=== PATIENT | female | born 1945 | race Caucasian/White ===

== ENCOUNTER 2020-12-16 01:37 | Emergency (ER) | payer OTHER, SELFPAY ==
[2020-12-16] VITALS (7 sets, daily range): BP systolic 106–122; BP diastolic 50–84; PULSE 70–107; RESP 16–18; TEMP 36.7; O2SAT 97–100; BMI 21.7
--- NOTE | ~2020-12-16 | XR_ITS ---
EXAMINATION: XR ANKLE, LEFT CLINICAL INFORMATION: Fall. Deformity. COMPARISON: None TECHNIQUE: AP, lateral, and mortise views of the left ankle. FINDINGS: There is an obliquely oriented distal fibular fracture extending to the ankle mortise. Slight lateral displacement of the distal fragment. Transverse fracture at the medial malleolus. No significant displacement. Prominent soft tissue swelling. Note is made of arthroplasty at the metatarsophalangeal joint, likely the first digit. XR/XR ankle LT min 3V IMPRESSION: Bimalleolar ankle fracture with prominent soft tissue swelling.
--- NOTE | ~2020-12-16 | CT_ITS ---
EXAMINATION: CT FEMUR WITHOUT CONTRAST, RIGHT CLINICAL INFORMATION: Fall with enlarging hematoma. COMPARISON: None TECHNIQUE: Multidetector volumetric imaging of the right femur performed without IV contrast. Coronal and sagittal reformatted images are obtained and reviewed. This CT examination was performed using dose optimization techniques as appropriate, variously including the following: *Automated exposure control *Adjustment of mA and/or kV according to patient size (this includes techniques or standardized protocols for targeted exams where dose is matched to indication/reason for exam; i.e. extremities or head) *Use of iterative reconstruction technique DLP: 378 mGy-cm FINDINGS: There is a prominent hematoma in the lateral soft tissues overlying the right proximal femur. The hematoma has a central area of well-defined appearance measuring 4.7 x 3.5 x 8.4 cm. There is significant surrounding soft tissue stranding/blood. This is positioned in the superficial soft tissues. There is no deep muscular hematoma. No acute osseous abnormality. No fracture. The hip is well aligned. The visualized right pelvis is intact. The femur is intact. Appropriate alignment of the knee. No joint effusion. CT/CT femur RT wo con IMPRESSION: Hematoma in the subcutaneous tissues overlying the lateral aspect of the proximal right femur.
--- NOTE | ~2020-12-16 | CT_ITS ---
EXAMINATION: NONCONTRAST HEAD CT NONCONTRAST CERVICAL SPINE CT INDICATION INFORMATION: Fall COMPARISON: None TECHNIQUE: Separate noncontrast CT examinations of the head and cervical spine were performed. Coronal and sagittal images were created for each examination at the technologist workstation. This CT examination was performed using dose optimization techniques as appropriate, variously including the following: *Automated exposure control *Adjustment of mA and/or kV according to patient size (this includes techniques or standardized protocols for targeted exams where dose is matched to indication/reason for exam; i.e. extremities or head) *Use of iterative reconstruction technique DLP: 924 mGy-cm FINDINGS: Head: There is no evidence of acute intracranial hemorrhage or territorial infarction. No abnormal mass effect or midline shift is seen. Winslow to white matter differentiation is well preserved. No extra-axial fluid collections are identified. No hydrocephalus. Proportional prominence of the ventricles and sulcal spaces is consistent with mild volume loss. Patchy periventricular and deep white matter hypoattenuation is consistent with mild small vessel ischemic changes. No acute osseous or soft tissue abnormality. The mastoid air cells and visualized portions of the paranasal sinuses are well aerated. Cervical spine: There is anatomic alignment of the vertebral bodies and posterior elements. The atlantoaxial and atlantooccipital articulations are intact. Vertebral body heights are maintained. There is multilevel intervertebral disc space narrowing with endplate osteophyte formation and facet arthropathy. No evidence of acute fracture. No prevertebral soft tissue swelling. Pleural thickening at the lung apices.. The thyroid gland is unremarkable. CT/CT cervical spine wo con IMPRESSION: 1. No acute intracranial finding. 2. No fracture or malalignment of the cervical spine. Moderate degenerative changes.
--- NOTE | 2020-12-16 01:51 | PC.NURSE ---
at bedside for primary eval.
--- NOTE | 2020-12-16 01:53 | ED.FALL ---
HPI - Fall General Chief Complaint: Fall Stated Complaint: fall fx ankle Time Seen by Provider: 12/16/20 01:43 Source: patient and EMS Mode of arrival: EMS Limitations: no limitations History of Present Illness HPI Narrative: Patient comes to the emergency room after a fall. Patient states she is visiting her family. Patient turned off the lights, misjudged a step and fell down the stairs. Patient denies loss of consciousness. Patient states she fell down a flight of stairs. Patient complaining of neck pain, right thigh pain and left ankle pain. Patient denies headache, no loss of consciousness, patient is not on blood thinners. At this time patient states that she is not hurting and does not want pain medication. Related Data Allergies Allergy/AdvReac Type Severity Reaction Status Date / Time No Known Allergies Allergy Verified 12/16/20 01:48 Review of Systems Review of Systems: Constitutional : No Weight loss, No Fever, No Chills, No Night Sweats, No Fatigue, No Malaise ENT/Mouth : No Hearing loss, No Ear Pain, No Nasal Congestion, No Sinus Pain, No Hoarseness, No sore throat, No Rhinorrhea, No Swallowing Difficulty Eyes: No Eye Pain, No Swelling, No Redness, No Foreign Body, No Discharge, No Vision Changes Cardiovascular : No Chest Pain, No SOB, No Dyspnea on Exertion, No Orthopnea, No Edema, No Palpitations Respiratory : No Cough, No Sputum, No Wheezing, No Smoke Exposure, No Dyspnea Gastrointestinal : No Nausea, No Vomiting, No Diarrhea, No Constipation, No abdominal Pain, No Hematochezia, No Melena Genitourinary : no irregular bleeding, No Dysuria, No Urinary Frequency, No Hematuria, No Urinary Incontinence, No Urgency, No Flank Pain, No Urinary Flow Changes, No Hesitancy Musculoskeletal : Neck pain, right thigh pain, left ankle pain Skin : Growing ecchymosis in the right thigh Neuro : No Weakness, No Numbness, No Paresthesias, No Loss of Consciousness, No Dizziness, No Headache Psych : No Anxiety/Panic, No Depression, No SI/HI/AH/VH, No Social Issues, Heme/Lymph: No Bruising, No Bleeding,No Lymphadenopathy Endocrine : No Polyuria, No Polydipsia, No Temperature Intolerance PMFSH Past Medical History Medical History Arthritis Hyperlipidemia Hypertension Social History Social History Patient Tobacco Use Status: Never used Tobacco Advance Directives: No Advance Directives Information Provided: No Physical Exam Vital Signs: Vital Signs: Last Vital Signs Temp 98.0 F 12/16/20 01:39 Pulse 87 12/16/20 07:01 Resp 16 12/16/20 07:01 BP 116/69 12/16/20 07:01 Pulse Ox 100 12/16/20 07:01 Body Mass Index 21.7 Appearance: Alert. Oriented X3. No acute distress. Eyes: Pupils equal, round and reactive to light. ENT: Pharynx normal. Neck: Normal inspection. Neck supple. No lymph nodes noted. No crepitus CVS: Normal heart rate and rhythm. Pulses normal. Normal S1 and S2 Respiratory: No respiratory distress. Breath sounds normal. No Wheezing. No rales Abdomen: Soft and nontender. No rigidity. No distention. good BS x4 Skin: Small laceration to the left ear. 10 cm x 5 cm ecchymosis in the posterior aspect of the right side. Extremities: No lower extremity edema. Deformity over the left ankle, swelling, no ecchymosis Neuro: Oriented X 3. No motor deficit. No sensory deficit. Moving all extermities. No slurred speech. Course Course Course Narrative: I discussed the patient with Dr. Gamboa. Recommendations: Follow-up outpatient on 12/20/20. Initially patient declines physical therapy and case management consult, but patient is unable to get up from the chair even using crutches. Patient's is trying to poke a flight to return to [place] as soon as possible. In the meantime, patient cannot return home, she has difficulty even walking with crutches. Case management and physical therapy consult pending. Sign-out given to Dr. West Procedures Laceration Laceration 1: Site: other (Left ear) Side (If applicable): left Size (cm): 1 Description: linear Depth: simple, single layer Local Anesthetic: lidocaine 2% Amount of anesthesia used (mL): 1 Skin layer closed with: nylon Size (cm): 6-0 Number of sutures: 3 MDM - Fall Lab Data Result diagrams: 12/16/20 07:19 12/16/20 07:19 Labs: Lab Results 12/16/20 Range/Units 07:19 WBC 12.6 H (4.8-10.8) X10*3/uL RBC 3.74 L (4.20-5.50) X10*6/uL Hgb 11.5 L (12.0-16.0) g/dl Hct 34.1 L (37-47) % MCV 91.2 (80-98) fL MCH 30.7 (27.0-33.0) pg MCHC 33.7 (31.0-35.0) g/dl RDW 12.8 (11.0-16.0) % Plt Count 170 (160-400) X10*3/uL MPV 10.7 (9.4-12.3) fL Absolute Nucleated RBC 0.000 (0.0-0.012) X10*3/uL Nucleated RBC % (auto) 0.0 (0.0-0.2) /100WBC Imaging Data Head and neck CT: Radiologist's impression: Head: There is no evidence of acute intracranial hemorrhage or territorial infarction. No abnormal mass effect or midline shift is seen. Winslow to white matter differentiation is well preserved. No extra-axial fluid collections are identified. No hydrocephalus. Proportional prominence of the ventricles and sulcal spaces is consistent with mild volume loss. Patchy periventricular and deep white matter hypoattenuation is consistent with mild small vessel ischemic changes. No acute osseous or soft tissue abnormality. The mastoid air cells and visualized portions of the paranasal sinuses are well aerated. Cervical spine: There is anatomic alignment of the vertebral bodies and posterior elements. The atlantoaxial and atlantooccipital articulations are intact. Vertebral body heights are maintained. There is multilevel intervertebral disc space narrowing with endplate osteophyte formation and facet arthropathy. No evidence of acute fracture. No prevertebral soft tissue swelling. Pleural thickening at the lung apices.. The thyroid gland is unremarkable. CT/CT cervical spine wo con IMPRESSION: 1. No acute intracranial finding. 2. No fracture or malalignment of the cervical spine. Moderate degenerative changes. Femur, thigh CT scan: Radiologist's impression: This CT examination was performed using dose optimization techniques as appropriate, variously including the following: *Automated exposure control *Adjustment of mA and/or kV according to patient size (this includes techniques or standardized protocols for targeted exams where dose is matched to indication/reason for exam; i.e. extremities or head) *Use of iterative reconstruction technique DLP: 378 mGy-cm FINDINGS: There is a prominent hematoma in the lateral soft tissues overlying the right proximal femur. The hematoma has a central area of well-defined appearance measuring 4.7 x 3.5 x 8.4 cm. There is significant surrounding soft tissue stranding/blood. This is positioned in the superficial soft tissues. There is no deep muscular hematoma. No acute osseous abnormality. No fracture. The hip is well aligned. The visualized right pelvis is intact. The femur is intact. Appropriate alignment of the knee. No joint effusion. CT/CT femur RT wo con IMPRESSION: Hematoma in the subcutaneous tissues overlying the lateral aspect of the proximal right femur. Ankle x-ray: Radiologist's impression: FINDINGS: There is an obliquely oriented distal fibular fracture extending to the ankle mortise. Slight lateral displacement of the distal fragment. Transverse fracture at the medial malleolus. No significant displacement. Prominent soft tissue swelling. Note is made of arthroplasty at the metatarsophalangeal joint, likely the first digit. XR/XR ankle LT min 3V IMPRESSION: Bimalleolar ankle fracture with prominent soft tissue swelling. Discharge Plan Discharge Clinical Impression: Malleolar fracture, Hematoma and contusion, Laceration Instructions: Ankle Fracture (ED), Laceration (ED), Contusion in Adults (ED)
--- NOTE | 2020-12-16 02:10 | PC.NURSE ---
Pt off to imaging on hospital bed.
--- NOTE | 2020-12-16 02:27 | PC.NURSE ---
Pt returns from imaging on hospital bed. Pt aware of plan to await results.
--- NOTE | 2020-12-16 05:28 | PC.NURSE ---
Addendum entered by Sharon Hairston 12/16/20 05:30: While splinting left ankle, left foot/toes noted to be cool to the touch. +Dorsalis pedis pulse noted to left foot with palpation and doppler, skin marked with skin pen. MD aware, at bedside for reeval. Original Note: Splint applied to left ankle by senior technical project manager. Pt provided with crutches but is having difficulty ambulating with crutches. Pt assisted up and onto commode. Pt aware of plan for sutures to left ear.
--- NOTE | 2020-12-16 05:45 | PC.NURSE ---
Pt placed on bed smith multiple times but was unable to urinate. Pt assisted up and onto commode but remained unable to urinate. Bladder scan revealing 145 ml of urine in bladder, pt reporting some discomfort, states maybe it's all up here pointing to her head. Pt resting in bed at this time, per , tong CM and PT eval in the morning.
[2020-12-16] MEDS: Lidocaine HCl 2 % MPF 5 ML VIAL INFILTRATI (06:30)
--- NOTE | 2020-12-16 06:40 | PC.NURSE ---
MD at bedside for wound repair to left earlobe, 3 sutures applied, bleeding controlled, pt tolerating procedure well. Pt expressing distress over difficulty ambulating, aware of plan to see CM and have a PT eval. Pt resting in bed at this time, call guidry in reach. Continue to monitor.
[2020-12-16] MEDS: traMADoL HCL 50 MG TABLET PO (07:12)
[2020-12-16 07:27] LABS: Hematocrit 34.1 % (37-47); Hemoglobin 11.5 g/dl (12.0-16.0); Mean Corpuscular HGB Conc 33.7 g/dl (31.0-35.0); Mean Corpuscular Hemoglobin 30.7 pg (27.0-33.0); Mean Corpuscular Volume 91.2 fL (80-98); Mean Platelet Volume 10.7 fL (9.4-12.3); Platelet Count 170 X10*3/uL (160-400); Red Blood Count 3.74 X10*6/uL (4.20-5.50); Red Cell Distribution Width 12.8 % (11.0-16.0); White Blood Count 12.6 X10*3/uL (4.8-10.8)
[2020-12-16 07:42] LABS: COVID-19 Test Negative (Negative)
[2020-12-16 07:54] LABS: Anion Gap 15 (12-20); Blood Urea Nitrogen 24 mg/dL (9-16); Calcium 9.2 mg/dL (8.4-10.2); Carbon Dioxide 26 mmol/L (22-29); Chloride 98 mmol/L (96-108); Creatinine Clr Calc Pharmacy 48.5; Estimated Glomerular Filt Rate 60; Glucose Random 135 mg/dL (60-115); Potassium 3.7 mmol/L (3.3-5.1); Sodium 135 mmol/L (135-145)
--- NOTE | 2020-12-16 08:00 | PC.NURSE ---
Patient is up in reclining chair resting quietly with eyes closed
--- NOTE | 2020-12-16 08:16 | HE.PHANOTE ---
Pharmacy Consult ? Medication Reconciliation Pharmacy has completed the medication reconciliation and there were no significant medication issues requiring provider attention. Ginny Redding PharmD, [facility]
[2020-12-16] MEDS: Metoprolol Succinate ER 50 MG TAB.ER.24H PO (09:37)
[2020-12-16] MEDS: Aspirin Enteric Coated 81 MG TABLET.DR PO (09:37)
[2020-12-16] MEDS: hydroCHLOROthiazide 25 MG TABLET PO (09:37)
[2020-12-16] MEDS: Multivitamin TABLET 1 TAB PO (09:37)
[2020-12-16] MEDS: Losartan Potassium 50 MG TABLET 100 MG PO (09:39)
--- NOTE | 2020-12-16 10:00 | PC.NURSE ---
Patient assisted up to bedside commode and back to recliner. Pt tolerated transfer well.
--- NOTE | 2020-12-16 11:01 | MHC.CM.ED ---
Addendum entered by Veronica Phelps 12/16/20 11:17: Patient had her 2nd [employer] on 11/23. Original Note: Received case management consult overnight. Patient came to the ER due to a fall. Found to have an ankle fracture. Attempted to meet with patient in regards to discharge planning. Nursing care being provided to patient. Patient's daughter in law, Yenifer was available outside of patient's room. Patient and her live in [place]. Flew to [facility] yesterday to visit. Patient wants to fly home today. Family has arranged a flight. They will be back at 2pm to transport patient to the airport. Patient is aware and agreeable. Renu GARCIA aware. Continue to monitor for d/c needs.
--- NOTE | 2020-12-16 11:37 | PC.NURSE ---
Patient is sitting up in recliner at bedside. pt informed she has tylenol and valium ordered. Pt does not want it right now. Patient states she prefers to wait until she is getting ready to be discharged to fly home. Pt currently rates pain a 3/10
--- NOTE | 2020-12-16 13:35 | PC.NURSE ---
Patient assisted up to bedside commode then back to recliner chair. Pt rates pain a 4/10
[2020-12-16] MEDS: diazePAM 2 MG TABLET PO (13:42)
[2020-12-16] MEDS: Acetaminophen 325 MG TABLET 975 MG PO (13:42)
== END 2020-12-16 14:25 | disposition home or self-care (01) ==
PROVIDERS: Emergency Medicine; Absent Provider Emergency Medicine; Emergency Provider Emergency Medicine; PCP Internal Medicine; Referring Provider Emergency Medicine
DX: S01.312A Laceration without foreign body of left ear, initial encounter (principal); S82.842A Displaced bimalleolar fracture of left lower leg, initial encounter for closed fracture; S70.11XA Contusion of right thigh, initial encounter; W10.8XXA Fall (on) (from) other stairs and steps, initial encounter; R22.42 Localized swelling, mass and lump, left lower limb; Y93.89 Activity, other specified; Y92.018 Other place in single-family (private) house as the place of occurrence of the external cause; Y99.9 Unspecified external cause status
CPT/HCPCS: 12011; 29515; 36415; 70450; 72125; 73610; 73700; 80048; 85027; 87635; 97162; 99285